=== PATIENT | male | born 1955 | race Caucasian/White ===

== ENCOUNTER 2020-03-07 04:14 | Emergency (ER) | payer MEDICARE ==
[~2020-03-07] VITALS: Ht 170.2 cm; Wt 114.0 kg
== END 2020-03-07 05:00 | disposition expired ==
LOC: ER 04:28
DX: I46.9 Cardiac arrest, cause unspecified (principal); E78.00 Pure hypercholesterolemia, unspecified; I10 Essential (primary) hypertension; E11.9 Type 2 diabetes mellitus without complications; Z86.718 Personal history of other venous thrombosis and embolism
CPT/HCPCS: 31500; 92950; 99285